=== PATIENT | female | born 1945 | race Caucasian/White ===

== ENCOUNTER 2018-06-20 06:30 | Day surgery (SDC) | payer OTHER, BC ==
[2018-05-31 17:11] VITALS: BMI 37.9
[2018-06-20] MEDS ORDERED: TETRACAINE 0.5% OPHTH SOLN 2 ML BOTTLE ONE ×2 (07:23→08:20)
[2018-06-20] MEDS ORDERED: LIDOCAINE 1% P/F 10 MG/ML VIAL ONE (07:23)
[2018-06-20] MEDS ORDERED: BSS (NA/CA/MG/K) BALANCED SALT SOLUTION OPHTH SOLN 15 ML BOTTLE ONE (07:24)
[2018-06-20] MEDS ORDERED: CARBACHOL 0.01% INTRA-OCULAR 1.5 ML VIAL ONE (07:24)
[2018-06-20] MEDS ORDERED: NEO/POLYMYX B SULF/DEXAMETH OPHTHALMIC 5ML BOTTLE ONE (07:24)
[2018-06-20] MEDS: CIPROFLOXACIN 0.3% EYE DROPS 5 ML BOTTLE ONE ×3 (07:25→07:35)
[2018-06-20] MEDS: PHENYLEPHRINE 2.5% OPHTH SOLN 15 ML BOTTLE ONE ×3 (07:25→07:35)
[2018-06-20] MEDS: CYCLOPENTOLATE 2% OPHTH SOLN 2 ML BOTTLE ONE ×3 (07:25→07:35)
[2018-06-20] MEDS: TROPICAMIDE 1% OPHTH SOLN 15 ML BOTTLE ONE ×3 (07:25→07:35)
[2018-06-20] MEDS ORDERED: MIDAZOLAM HCL 2 MG/2 ML SINGLE DOSE VIAL ONE (07:30)
[2018-06-20] MEDS ORDERED: EPINEPHrine 1:1,000 1 MG/1 ML - 30ML VIAL (INJECTION) ONE (07:35)
--- NOTE | 2018-06-20 09:19 | OP ---
DATE OF OPERATION: 06/20/2018 OPERATIVE PROCEDURE: Lens Phacoemulsification with Posterior Chamber Intraocular Lens Placement, Right Eye PREOPERATIVE DIAGNOSIS: Visually Significant Cataract of Right Eye POSTOPERATIVE DIAGNOSIS: Visually Significant Cataract of Right Eye SURGEON: Camron Buenrostro M.D. ANESTHESIA: MAC PROCEDURE: The patient was brought to the operating room and placed under monitored anesthesia care by Anesthesia. A drop of Tetracaine was then placed over the right eye. The patient was then prepped and draped in the usual sterile manner. A speculum was then placed over the right eye. The eye was then well irrigated with copious amounts of BSS (balanced salt solution). The operating microscope was then moved into position. A paracentesis was performed using a 15 degree blade. At this point 0.5 mL of 1% preservative free-lidocaine was injected into the anterior chamber. Amvisc plus was then injected into the anterior chamber. A clear corneal incision was then formed using a 2.2 mm keratome. A capsulorrhexis was then performed in a continuous circular fashion beginning with a cystotome completed with an Utratas forceps. Hydrodissection was then performed using BSS on a cannula. The phaco probe was then introduced through the corneal wound and the cataract was removed using the phaco chop technique. Approximately 3 seconds of absolute phaco time was used. The remaining cortex was then removed using irrigation and aspiration with an I/A probe. The capsule was then filled with regular Amvisc and the capsule was noted to be intact. A previously selected foldable posterior chamber intraocular lens was then injected into the capsule through the corneal wound using a lens injector. It was then dialed into position using a Sinskey hook. The Amvisc was then removed using irrigation and aspiration. Miostat was then injected through the paracentesis to constrict the pupil. The paracentesis and corneal wound were then hydrated and noted to be water tight. A drop of Maxitrol was then placed over the eye. The speculum was removed and clear shield was taped over the eye. The patient tolerated the procedure well and there were no surgical complications. The patient was asked to follow up in my office the next day. CAMRON BUENROSTRO M.D. [id number]
[2018-06-20 09:29] VITALS: BP 135/68; PULSE 71; TEMP 98
[2018-06-20] MEDS ORDERED: ACETAMINOPHEN 325 MG TABLET (FP) PO PRN (13:07)
[2018-06-20] MEDS ORDERED: ONDANSETRON 4 MG/2 ML VIAL IVPUSH PRN (13:07)
[2018-06-20] MEDS ORDERED: LACTATED RINGERS SOLUTION 1,000 ML IV SCH (13:15)
== END 2018-06-20 09:30 | disposition home or self-care (01) ==
LOC: FASU 06:30
PROVIDERS: ATTEND Ophthalmology
PROC: 08RJ3JZ Replacement of Right Lens with Synthetic Substitute, Percutaneous Approach (ICD-10-PCS; principal; 2018-06-20 08:23)
DX: H26.8 Other specified cataract (principal)

== ENCOUNTER 2018-07-25 06:33 | Day surgery (SDC) | payer OTHER, BC ==
[2018-07-16 12:45] VITALS: BMI 37.1
[2018-07-25] MEDS: TROPICAMIDE 1% OPHTH SOLN 15 ML BOTTLE ONE ×3 (07:10→07:20)
[2018-07-25] MEDS: CIPROFLOXACIN 0.3% EYE DROPS 5 ML BOTTLE ONE ×3 (07:10→07:20)
[2018-07-25] MEDS: CYCLOPENTOLATE 2% OPHTH SOLN 2 ML BOTTLE ONE ×3 (07:10→07:20)
[2018-07-25] MEDS: PHENYLEPHRINE 2.5% OPHTH SOLN 15 ML BOTTLE ONE ×3 (07:10→07:20)
[2018-07-25] MEDS ORDERED: LIDOCAINE 1% P/F 10 MG/ML VIAL ONE (07:12)
[2018-07-25] MEDS ORDERED: NEO/POLYMYX B SULF/DEXAMETH OPHTHALMIC 5ML BOTTLE ONE (07:13)
[2018-07-25] MEDS ORDERED: TETRACAINE 0.5% OPHTH SOLN 2 ML BOTTLE ONE (07:13)
[2018-07-25] MEDS ORDERED: BSS (NA/CA/MG/K) BALANCED SALT SOLUTION OPHTH SOLN 15 ML BOTTLE ONE (07:13)
[2018-07-25] MEDS ORDERED: EPINEPHrine/PF 1 MG/1 ML (1:1,000) AMPULE ONE (07:13)
[2018-07-25] MEDS ORDERED: CARBACHOL 0.01% INTRA-OCULAR 1.5 ML VIAL ONE (07:13)
[2018-07-25] MEDS ORDERED: SUCCINYLCHOLINE CHLORIDE 200 MG/10 ML VIAL ONE (07:59)
[2018-07-25] MEDS ORDERED: MIDAZOLAM HCL 2 MG/2 ML SINGLE DOSE VIAL ONE ×2 (07:59→08:53)
[2018-07-25] MEDS ORDERED: PROPOFOL 20 ML ONE (07:59)
[2018-07-25 09:29] VITALS: TEMP 97
[2018-07-25 09:56] VITALS: BP 128/65; PULSE 70
[2018-07-25] MEDS ORDERED: ONDANSETRON 4 MG/2 ML VIAL IVPUSH PRN (10:20)
[2018-07-25] MEDS ORDERED: ACETAMINOPHEN 325 MG TABLET (FP) PO PRN (10:20)
--- NOTE | 2018-07-25 10:28 | OP ---
DATE OF OPERATION: 07/25/2018 OPERATIVE PROCEDURE: Lysis of Posterior Iris Lens Synechia and Lens Phacoemulsification with Posterior Chamber Intraocular Lens Placement, Left Eye PREOPERATIVE DIAGNOSIS: Visually Significant Cataract and Posterior Synechia of Left Eye POSTOPERATIVE DIAGNOSIS: Visually Significant Cataract and Posterior Synechia of Left Eye SURGEON: Camron Buenrostro M.D. ANESTHESIA: MAC PROCEDURE: The patient was brought to the operating room and placed under monitored anesthesia care by Anesthesia. A drop of Tetracaine was then placed over the left eye. The patient was then prepped and draped in the usual sterile manner. A speculum was then placed over the left eye. The eye was then well irrigated with copious amounts of BSS (balanced salt solution). The operating microscope was then moved into position. A paracentesis was performed using a 15 degree blade. At this point, 0.5 mL of 1% preservative-free lidocaine was injected into the anterior chamber. Amvisc plus was then injected into the anterior chamber. A clear corneal incision was then formed using a 2.2 mm keratome. A cyclodialysis spatula was then used to break the posterior synechia. Two Rent Jungleglen iris hooks were then used to stretch the iris. More Amvisc plus was then injected into the anterior chamber. A capsulorrhexis was then performed in a continuous circular fashion beginning with a cystotome and completed with an Utrata's forceps. Hydrodissection was then performed using BSS on a cannula. The phaco probe was then introduced through the corneal wound and the cataract was removed using the phaco chop technique. Approximately 3 seconds of absolute phaco time was used. The remaining cortex was then removed using irrigation and aspiration with an I/A probe. The capsule was then filled with regular Amvisc and the capsule was noted to be intact. A previously selected foldable posterior chamber intraocular lens was then injected into the capsule through the corneal wound using a lens injector. It was then dialed into position using a Sinskey hook. The Amvisc was then removed using irrigation and aspiration. Miostat was then injected through the paracentesis to constrict the pupil. The paracentesis and corneal wound were then hydrated and noted to be water tight. A drop of Maxitrol was then placed over the eye. The speculum was removed and clear shield was taped over the eye. The patient tolerated the procedure well and there were no surgical complications. The patient was asked to follow up in my office the next day. CAMRON BUENROSTRO M.D. [id number]
[2018-07-25] MEDS ORDERED: LACTATED RINGERS SOLUTION 1,000 ML IV SCH (10:30)
== END 2018-07-25 10:00 | disposition home or self-care (01) ==
LOC: FASU 06:33
PROVIDERS: ATTEND Ophthalmology
PROC: 08N1XZZ Release Left Eye, External Approach (ICD-10-PCS; 2018-07-25)
PROC: 08RK3JZ Replacement of Left Lens with Synthetic Substitute, Percutaneous Approach (ICD-10-PCS; principal; 2018-07-25 08:34)
DX: H26.8 Other specified cataract (principal); H21.542 Posterior synechiae (iris), left eye

== ENCOUNTER 2019-03-23 11:58 | Emergency (ER) | payer OTHER, BC ==
[2019-03-23 12:03] VITALS: BP 110/60; PULSE 85; TEMP 98.5; BMI 37.1
--- NOTE | 2019-03-23 12:08 | PDOC ---
Attending Attestation - Resident Resident Name: Hung Birch - ED Attending Attestation I have performed the following: I have examined & evaluated the patient, The case was reviewed & discussed with the resident, I agree w/resident's findings & plan, Exceptions are as noted - HPI HPI: 03/23/19 13:33 73yo female with hx of diverticulitis with n/v/d and LLQ abd pain. Pt states pain started and n/v/d started after the pain. 3 episodes of vomiting last night and this am - nonbloody and nonbilious. States black stool, no brb. Pt states she saw [facility] yesterday and was started on augmenting - n/v worsened and now with dry heaving. No fevers. Still with pain. Pt states she hasn't been able to eat or drink since . Pt appears dehydrated upon exam. Pt ambulated into the ed. Denies urinary complaints. - Physicial Exam PE: 03/23/19 13:35 Gen: aaox3, dehydrated, dry mm heent: dry cracked lips and tongue heart: +s1s2 reg lungs: cta b/l abd: soft, llq ttp, no rebound or guarding, obese abd ext: trace swelling in LE, well healed mohs surgery sites. - Medical Decision Making 03/23/19 13:36 a/p: 73yo female with LLQ pain, n/v/d -black stool- will send for heme -on augmentin for poss diverticulitis since yesterday still with n/v/d -still with pain -will send labs, rectal exam, ct abd/pelvis -pt with shellfish allergy -will obtain noncontrast ct -pt appears dehydrated, will medicate -will monitor and reassess -pt ambulated into the ED 03/23/19 13:37 labs reviewed, no elevated wbc 03/23/19 13:37 stool for heme negative 03/23/19 15:42 pt with kidney stone and uti will start iv rocephin will start flomax 03/23/19 17:13 pt feeling better wants to go home will dc with meds and abx will give urology follow up resident discussed all reasons to return to the ED
--- NOTE | 2019-03-23 12:27 | PDOC ---
History of Present Illness - General Chief Complaint: Pain Stated Complaint: ABD PAIN Time Seen by Provider: 03/23/19 12:02 History Source: Patient, Family - History of Present Illness Initial Comments: 03/23/19 12:07 Ms. Monroe is a 73 y/o woman with hx of diverticulitis p/w two days of ongoing LLQ pain radiating to her back. She was seen by her gastroenteroligist (Dr. [facility]: [phone]) yesterday (03/22/2019) whom initiated treatment for diverticulitis with amoxicillin-clavulanate 875-125mg (abx day 2). They instructed her to return for CT evaluation in the pain worsened. Last night she had difficulty sleeping due to the pain in her LLQ, which prompted her to seek evaluation today. She reports that last night the pain was a 10/10, mildly alleviated by ice packs, radiating to her back. She reports that the pain is intermittent - she is not in pain at this time. She reports decrease in appetite since the pain began, and reports several episodes (approx 7) of non- bloody non-bilious vomiting over the past two days. She reports having "a few" dark, bloody bowel movements yesterday, but has been passing stool and gas without difficulty. She denies any fever, chills, (change in appetite), fatigue , night sweats. She reports that her last colonoscopy as 3-4 years ago and showed only diverticulosis. PCP: Dr. Winter Timing/Duration: other (2 days) Severity: moderate, severe Modifying Factors: improves with: cold therapy (alleviated mildly) Associated Symptoms: reports: loss of appetite, nausea/vomiting (4-5 times March 21, 3x yesterday. Non-bloody non billious). denies: chest pain, cough, diaphoresis, fever/chills, headaches, rash, syncope, weakness Past History - Past Medical History Allergies/Adverse Reactions: Allergies Allergy/AdvReac Type Severity Reaction Status Date / Time codeine Allergy Severe Vomiting Verified 03/23/19 12:11 gemifloxacin [From Factive] Allergy Severe Itching Verified 03/23/19 12:11 latex Allergy Severe Swelling Verified 03/23/19 12:11 levofloxacin [From Levaquin] Allergy Severe Itching Verified 03/23/19 12:11 shellfish derived Allergy Severe Swelling Verified 03/23/19 12:11 tramadol [From Ultram] Allergy Severe Itching Verified 03/23/19 12:11 methylprednisolone AdvReac Severe Swelling Verified 03/23/19 12:11 Home Medications: Ambulatory Orders Cholecalciferol (Vitamin D3) [Vitamin D3] 1,000 unit PO DAILY 05/31/18 Cyanocobalamin [Vitamin B12 -] 1,000 mcg PO DAILY 05/31/18 Levothyroxine [Synthroid -] 100 mcg PO DAILY 05/31/18 Magnesium Oxide [Mag-Ox -] 400 mg PO DAILY 05/31/18 Meloxicam 15 mg PO DAILY 05/31/18 Multivitamins [Multivit ([facility] Formulary)] 1 tab PO DAILY 05/31/18 Telmisartan 20 mg PO DAILY 05/31/18 Polyethylene Glycol 3350 [Miralax 119 gm Btl -] 17 gm PO DAILY 07/16/18 Saccharomyces Boulardii [Florastor] 250 mg PO BID 07/16/18 Amoxicillin/Potassium Clav [Augmentin 875-125 Tablet] 1 each PO BID 03/23/19 Calcium Carb/Vitamin D3/Vit K1 [Viactiv 650 mg-12.5 Mcg Chew] 1 each PO DAILY Cephalexin [Keflex] 500 mg PO BID 7 Days #14 capsule 03/23/19 Famotidine [Pepcid] 40 mg PO HS PRN 03/23/19 Ibuprofen [Motrin -] 600 mg PO TID #15 tablet 03/23/19 Ondansetron [Zofran Odt -] 4 mg SL TID #10 od.tablet 03/23/19 Tamsulosin HCl [Flomax] 0.4 mg PO DAILY 14 Days #14 capsule 03/23/19 Anemia: No Asthma: No Cancer: Yes (SKIN CANCER) Cardiac Disorders: No CVA: No COPD: No CHF: No Dementia: No Diabetes: No GI Disorders: Yes (GERD,diverticulitis) Disorders: No HTN: Yes Hypercholesterolemia: No Liver Disease: No Seizures: No Thyroid Disease: Yes Other medical history: KNEE PAINS - Surgical History Abdominal Surgery: No Appendectomy: No Cardiac Surgery: No Cholecystectomy: No Lung Surgery: No Neurologic Surgery: No Orthopedic Surgery: Yes (BUNION, ARTHROSCOPY) - Suicide/Smoking/Psychosocial Hx Smoking History: Never smoked Have you smoked in the past 12 months: No Information on smoking cessation initiated: No Hx Alcohol Use: No Drug/Substance Use Hx: No Substance Use Type: None Hx Substance Use Treatment: No Review of Systems - Review of Systems Able to Perform ROS?: Yes Constitutional: Yes: See HPI, Loss of Appetite. No: Chills, Diaphoresis, Fever , Night Sweats, Weakness HEENTM: Yes: See HPI Respiratory: Yes: See HPI. No: Cough, Shortness of Breath, Wheezing, Productive cough Cardiac (ROS): Yes: See HPI. No: Chest Pain, Edema, Lightheadedness, Syncope ABD/GI: Yes: See HPI, Nausea, Vomiting, Abdominal cramping, Tarry Stools. No: Abdominal Distended, Abd. Pain w/ defecation, Constipated : Yes: See HPI, Flank Pain. No: Burning, Dysuria, Frequency, Incontinence, Pain, Urgency *Physical Exam - Vital Signs Last Vital Signs Temp Pulse Resp BP Pulse Ox 98.5 F 85 18 110/60 96 03/23/19 11:58 03/23/19 11:58 03/23/19 11:58 03/23/19 11:58 03/23/19 11:58 - Physical Exam General Appearance: Yes: Nourished, Appropriately Dressed. No: Apparent Distress Neck: positive: Trachea midline Respiratory/Chest: positive: Lungs Clear, Normal Breath Sounds. negative: Respiratory Distress, Accessory Muscle Use, Decreased Breath Sounds, Crackles, Wheezing Cardiovascular: positive: Regular Rhythm, Regular Rate, S1, S2. negative: Murmur Gastrointestinal/Abdominal: positive: Normal Bowel Sounds, Tender (LLQ), Soft, Tenderness. negative: Pulsatile Mass, Increased Bowel Sounds, Decreased BS, Rebound ED Treatment Course - LABORATORY CBC & Chemistry Diagram: 03/23/19 12:55 03/23/19 12:55 Medical Decision Making - Medical Decision Making 03/23/19 12:32 73 y/o F with hx diverticulitis on abx for diverticulitis flare (day 2 of 10 of amox/clav) p/w worsening abdominal pain, LLQ tenderness, N/V, and loss of appetite, most consistent with acute diverticulitis. Plan for basic labs, IV zofran, pepcid, acetaminophen for nausea/vomiting/pain, liter bolus for rehydration. Plan for CT abdomen/pelvis to evaluate for possible microperforation given worsening abdominal pain. Plan: CBC w/diff CMP Famotidine Zofran [address] NS CT Abdomen Pelvis w/IV contrast Coags Dispo: Pending CT results 03/23/19 13:09 Patient unsure of seafood allergy, will order CT without contrast. *DC/Admit/Observation/Transfer Diagnosis at time of Disposition: Kidney stone on left side - Discharge Dispostion Disposition: HOME Condition at time of disposition: Stable Decision to Admit order: No - Prescriptions Prescriptions: Cephalexin [Keflex] 500 mg PO BID 7 Days #14 capsule Ibuprofen [Motrin -] 600 mg PO TID #15 tablet Ondansetron [Zofran Odt -] 4 mg SL TID #10 od.tablet Tamsulosin HCl [Flomax] 0.4 mg PO DAILY 14 Days #14 capsule - Referrals Referrals: May Winter MD [Primary Care Provider] - Denver Andre MD [Staff Physician] - - Patient Instructions Additional Instructions: You were evaluated in the emergency department by Dr. Birch and Dr. Alvarado. We evaluated your symptoms, took a medical history, evaluated blood work, and ordered a CT scan. We are diagnosing you with a kidney stone in your left kidney. Please take all prescribed medications as directed. Please return to the ED if you develop worsening pain, if you develop a high fever, or if you develop any other symptoms that are concerning to you. Please follow up with a urologist. - Post Discharge Activity
[2019-03-23] MEDS ORDERED: SODIUM CHLORIDE 1,000 ML IV STA ×2 (12:47→15:25)
[2019-03-23] MEDS ORDERED: ACETAMINOPHEN 1000 MG/100 ML VIAL (NON FORMULARY) IVPB ONE (12:48)
[2019-03-23] MEDS ORDERED: ONDANSETRON 4 MG/2 ML VIAL IVPUSH ONE ×2 (12:48→15:25)
[2019-03-23] MEDS ORDERED: FAMOTIDINE 20 MG/50 ML IVPB 20 MG/50 ML MG IVPB ONE ×2 (12:48→12:50)
[2019-03-23] MEDS ORDERED: ACETAMINOPHEN INJECTION 100 ML IVPB ONE (12:50)
[2019-03-23] MEDS ORDERED: ONDANSETRON 4 MG/2 ML VIAL ONE ×2 (12:50→15:31)
[2019-03-23 13:14] LABS: RDW 12.9 % (11.6-15.6); WHITE BLOOD COUNT 10.1 K/mm3 (4.0-10.8)
[2019-03-23 13:17] LABS: BASO % 0.4 % (0-2.0); EOS % 1.2 % (0-4.5); HEMATOCRIT 45.1 % (32.4-45.2); HEMOGLOBIN 15.3 GM/dl (10.7-15.3); LYMPH % 10.6 % (8-40); MCH 30.2 pg (25.7-33.7); MCHC 33.8 g/dl (32.0-36.0); MEAN CELL VOLUME 89.3 fl (80-96); MEAN PLT VOLUME 7.4 fl (7.5-11.1); MONO % 5.5 % (3.8-10.2); NEUT % 82.3 % (42.8-82.8); PLATELET COUNT 224 K/MM3 (134-434); RBC 5.05 M/mm3 (3.60-5.2)
[2019-03-23 13:21] LABS: ALBUMIN 3.8 g/dl (3.4-5.0); BILIRUBIN,TOTAL 1.5 mg/dl (0.2-1); CALCIUM 8.7 mg/dl (8.5-10); CREATININE 0.7 mg/dl (0.55-1.3); POTASSIUM 3.7 mmol/L (3.5-5.1); TOT PROT 6.8 g/dl (6.4-8.2)
[2019-03-23 13:28] LABS: ACTIVATED PTT 26.8 SECONDS (25.2-36.5)
[2019-03-23 13:32] LABS: INR 1.22 (0.82-1.09); PROTHROMBIN TIME (PATIENT) 13.6 SEC (10.2-13.0)
[2019-03-23 14:51] LABS: CALCIUM OXALATE CRYSTALS MODERATE /hpf (NONE SEEN); EPITHELIAL CELLS MODERATE /hpf
[2019-03-23] MEDS ORDERED: KETOROLAC TROMETHAMINE 30 MG/1 ML VIAL IVPUSH ONE (15:25)
[2019-03-23] MEDS ORDERED: KETOROLAC TROMETHAMINE 30 MG/1 ML VIAL ONE (15:31)
[2019-03-23] MEDS ORDERED: CEFTRIAXONE 1 GM in DEXTROSE 5%-WATER - 100 ML IVPB ONE (15:37)
[2019-03-23] MEDS ORDERED: TAMSULOSIN HCL 0.4 MG CAP PO ONE (15:37)
[2019-03-23] MEDS ORDERED: TAMSULOSIN HCL 0.4 MG CAP ONE (15:39)
[2019-03-23] MEDS ORDERED: cefTRIAXone SODIUM 1 GM VIAL ONE (15:39)
== END 2019-03-23 17:45 | disposition home or self-care (01) ==
LOC: FER 11:58
PROC: 3E033NZ Introduction of Analgesics, Hypnotics, Sedatives into Peripheral Vein, Percutaneous Approach (ICD-10-PCS; principal; 2019-03-23)
PROC: 3E03329 Introduction of Other Anti-infective into Peripheral Vein, Percutaneous Approach (ICD-10-PCS; 2019-03-23)
PROC: 3E033GC Introduction of Other Therapeutic Substance into Peripheral Vein, Percutaneous Approach (ICD-10-PCS; 2019-03-23)
PROC: 3E0333Z Introduction of Anti-inflammatory into Peripheral Vein, Percutaneous Approach (ICD-10-PCS; 2019-03-23)
PROC: 3E0337Z Introduction of Electrolytic and Water Balance Substance into Peripheral Vein, Percutaneous Approach (ICD-10-PCS; 2019-03-23)
DX: N20.0 Calculus of kidney (principal)
CPT/HCPCS: 36415; 74176-TC; 80053; 81003; 81015; 82272; 85025; 85610; 85730; 87086; 99285-25; J0131; J7030

== ENCOUNTER 2019-04-27 22:05 | Emergency (ER) | payer OTHER, BC ==
[2019-04-27 22:13] VITALS: BP 148/57; PULSE 65; TEMP 98.3; BMI 37.3
[2019-04-27] MEDS ORDERED: ACETAMINOPHEN 325 MG TABLET (FP) PO ONE (22:15)
--- NOTE | 2019-04-27 22:15 | PDOC ---
Documentation entered by Boni Whitaker SCRIBE, acting as scribe for Xiomara Carolina MD. Xiomara Carolina MD: This documentation has been prepared by the Julianne king Xhesika, SCRIBE, under my direction and personally reviewed by me in its entirety. I confirm that the documentation accurately reflects all work, treatment, procedures, and medical decision making performed by me. History of Present Illness - General Chief Complaint: Injury Stated Complaint: FALL Time Seen by Provider: 04/27/19 22:08 History Source: Patient Exam Limitations: No Limitations - History of Present Illness Initial Comments: 04/27/19 22:18 The patient is a 73 year old female with a significant PMH of diverticulitis and chronic knee arthritis who presents to the emergency department with b/l knee pain s/p fall. The patient states she was going to grab something from the refrigerator, tripped, fell backwards landing on her buttocks,she tried catching her fall and hit her head on the umbrella mender. Patient states she tried to get up, however, she could not put pressure on her knees because she has chronic arthritis (got knee injections a couple weeks ago). Patient notes she lives at home with her daughter and ambulates with a cane at baseline. Pt notes she was seen here last week for diverticulitis and CT showed kidney stones. The patient denies chest pain, shortness of breath, headache and dizziness. Denies fever, chills, cough, nausea, vomiting, diarrhea and constipation. Denies dysuria, frequency, urgency and hematuria. Allergies: NKDA Past History - Past Medical History Allergies/Adverse Reactions: Allergies Allergy/AdvReac Type Severity Reaction Status Date / Time codeine Allergy Severe Vomiting Verified 03/23/19 12:11 gemifloxacin [From Factive] Allergy Severe Itching Verified 03/23/19 12:11 latex Allergy Severe Swelling Verified 03/23/19 12:11 levofloxacin [From Levaquin] Allergy Severe Itching Verified 03/23/19 12:11 shellfish derived Allergy Severe Swelling Verified 03/23/19 12:11 tramadol [From Ultram] Allergy Severe Itching Verified 03/23/19 12:11 methylprednisolone AdvReac Severe Swelling Verified 03/23/19 12:11 Home Medications: Ambulatory Orders Cholecalciferol (Vitamin D3) [Vitamin D3] 1,000 unit PO DAILY 05/31/18 Cyanocobalamin [Vitamin B12 -] 1,000 mcg PO DAILY 05/31/18 Levothyroxine [Synthroid -] 100 mcg PO DAILY 05/31/18 Magnesium Oxide [Mag-Ox -] 400 mg PO DAILY 05/31/18 Meloxicam 15 mg PO DAILY 05/31/18 Multivitamins [Multivit ([facility] Formulary)] 1 tab PO DAILY 05/31/18 Telmisartan 20 mg PO DAILY 05/31/18 Polyethylene Glycol 3350 [Miralax 119 gm Btl -] 17 gm PO DAILY 07/16/18 Saccharomyces Boulardii [Florastor] 250 mg PO BID 07/16/18 Amoxicillin/Potassium Clav [Augmentin 875-125 Tablet] 1 each PO BID 03/23/19 Calcium Carb/Vitamin D3/Vit K1 [Viactiv 650 mg-12.5 Mcg Chew] 1 each PO DAILY Cephalexin [Keflex] 500 mg PO BID 7 Days #14 capsule 03/23/19 Famotidine [Pepcid] 40 mg PO HS PRN 03/23/19 Ibuprofen [Motrin -] 600 mg PO TID #15 tablet 03/23/19 Ondansetron [Zofran Odt -] 4 mg SL TID #10 od.tablet 03/23/19 Tamsulosin HCl [Flomax] 0.4 mg PO DAILY 14 Days #14 capsule 03/23/19 Anemia: No Asthma: No Cancer: Yes (SKIN CANCER) Cardiac Disorders: No CVA: No COPD: No CHF: No Dementia: No Diabetes: No GI Disorders: Yes (GERD,diverticulitis) Disorders: No HTN: Yes Hypercholesterolemia: No Liver Disease: No Seizures: No Thyroid Disease: Yes - Surgical History Abdominal Surgery: No Appendectomy: No Cardiac Surgery: No Cholecystectomy: No Lung Surgery: No Neurologic Surgery: No Orthopedic Surgery: Yes (BUNION, ARTHROSCOPY) - Suicide/Smoking/Psychosocial Hx Smoking History: Never smoked Have you smoked in the past 12 months: No Hx Alcohol Use: No Drug/Substance Use Hx: No Substance Use Type: None Hx Substance Use Treatment: No Review of Systems - Review of Systems Constitutional: No: Chills, Diaphoresis HEENTM: No: Eye Pain, Blurred Vision, Difficulty Swallowing Respiratory: No: Orthopnea, Shortness of Breath Cardiac (ROS): No: Chest Pain, Edema : No: Burning, Dysuria Musculoskeletal: Yes: Joint Pain Integumentary: No: Bruising, Change in Color All Other Systems: Reviewed and Negative *Physical Exam - Physical Exam Comments: 04/27/19 22:11 awake alert NAD head atraumatic. no cervical spine tenderness. lungs clear bilat heart rrr no mrg chest wall nt. abd soft nt nd. ext wwp knee bilat from. no abrasion. small eccymosis punctate 1 cm. bilat anterior knee ( old). ankle nt from) ED Treatment Course - RADIOLOGY Radiology Studies Ordered: Category Date Time Status HEAD CT WITHOUT CONTRAST [CT] Stat CT Scan 04/27/19 22:09 Ordered KNEE 2 POS-LEFT [RAD] Stat Radiology 04/27/19 22:09 Ordered KNEE 2 POS-RIGHT [RAD] Stat Radiology 04/27/19 22:09 Ordered Medical Decision Making - Medical Decision Making 04/27/19 22:14 73 yo s/p trip and fall backward hit head on umbrella mender, denies loc. no n/v no weakness. was unable to stand because had recent knee injections and would have to put pressure on knee to stand up. plan ct head. xray bilat knees. tylenol. 04/27/19 23:22 pt with negative fracture on bilat knee xray. severe djd. head ct no acute changes. will dc home [place] daughter. fu orthopedics as needed. 04/27/19 23:56 d/w pt and her daughter. has fu scheduled for this 5 days fro today [place] dr Gibson Marks. *DC/Admit/Observation/Transfer Diagnosis at time of Disposition: Head trauma, Arthritis of knee - Discharge Dispostion Disposition: HOME Condition at time of disposition: Improved - Referrals Referrals: May Winter MD [Staff Physician] - - Patient Instructions Printed Discharge Instructions: DI for Closed Head Injury, DI for Knee Pain Additional Instructions: you can take tylenol 500 mg every 6 hrs as needed for pain. return for any vomiting headache. confusion or any concerns your xray of your knees show severe arthritis, no acute broken bones. your head ct is negative for any acute injuries. follow up wt your primary doctor and your orthopedist. - Post Discharge Activity
[2019-04-27] MEDS ORDERED: ACETAMINOPHEN 325 MG TABLET (FP) ONE (22:34)
== END 2019-04-28 00:06 | disposition home or self-care (01) ==
LOC: FER 22:05
DX: S09.90XA Unspecified injury of head, initial encounter (principal); W01.0XXA Fall on same level from slipping, tripping and stumbling without subsequent striking against object, initial encounter; Y93.89 Activity, other specified; Y92.000 Kitchen of unspecified non-institutional (private) residence as the place of occurrence of the external cause; G89.29 Other chronic pain; M17.0 Bilateral primary osteoarthritis of knee
CPT/HCPCS: 70450-TC; 73560-TC-LT-FY; 73560-TC-RT-FY; 99281-25